=== PATIENT | female | born 1950 | race Two or more races ===

== ENCOUNTER 2019-03-04 06:05 | Day surgery (SDC) | payer OTHER ==
[~2019-03-04 06:05] MED LIST: CLONAZEPAM1 M1 PO; FOSAMAX70 MG PO; GABAPENTIN800 MG PO; PROTONIX40 MG PO; RESTORIL30 MG PO; SINGULAIR10 MG PO; WELLBUTRIN SR100 MG PO; ZANTAC300 MG PO; ZESTORETIC 10-1 EACH PO; ZOCOR20 MG PO; [UNRECOGNIZED DRUG - OTHER]
== END 2019-03-04 13:00 | disposition home or self-care (01) ==
LOC: CIR.AMB 06:05
DX: S52.531P Colles' fracture of right radius, subsequent encounter for closed fracture with malunion (principal)